=== PATIENT | female | born 1980 | race Caucasian/White ===

== ENCOUNTER 2016-04-28 11:14 | Emergency (ER) | payer OTHER, BC ==
[~2016-04-28] VITALS: Ht 175.3 cm; Wt 64.4 kg
[~2016-04-28 11:14] MED LIST: AMPH20TA2 PO; BCPILLS PO; FLUO27.5 PO; SPIR100T PO
[2016-04-28 11:22] VITALS: BP 161/98; PULSE 98; TEMP 37; O2SAT 95; Ht 175.3 cm; Wt 64.4 kg
--- NOTE | 2016-04-28 11:44 | EMERGENCY ROOM VISIT NOTE ---
ED Visit Note First contact with patient: 11:25 CHIEF COMPLAINT: Head injury HISTORY OF PRESENT ILLNESS: This 35-year-old female patient presented to the emergency department ambulatory after receiving a head injury which occurred this morning. The patient reports that she slipped on a sidewalk and fell, landing on her head. There was no loss of consciousness, but the patient does state that she felt like she was going to pass out for a few seconds. Since the injury, she has had a headache, dizziness and a feeling of fogginess. There has been no vomiting. The patient is concerned because she had a head injury 3-4 months ago and states that she sometimes has difficulty forming thoughts since then. The patient also reports that she hit her left side and has some mild pain in her left ribs. She had previously fractured these ribs. She rates her overall discomfort a 3/10. She denies any blurred vision, slurred speech, numbness, weakness or confusion. She has not taken any medication for her pain. She denies any other injuries. REVIEW OF SYSTEMS: A review of systems was performed with positives and pertinent negatives listed in the history of present illness. All other systems were reviewed and are negative. ALLERGIES: Scalp, shellfish allergy MEDICATIONS: control pills, fluoxetine, Aldactone, Adderall PMH: No significant past medical history. SOCIAL HISTORY: The patient lives locally with her family. PHYSICAL EXAM: Vital Signs: Reviewed Nurse's notes, vital signs stable. GENERAL : This is a 35-year-old female, in no acute distress, well-developed, well- nourished. NEURO: The patient is alert, oriented to person place and time, and coherent. Normal mini mental status exam. Negative Romberg and pronator drift. Cerebellar function intact. HEAD: Normocephalic, atraumatic. EYES: Pupils are equal round and reactive to light and accommodation. EOMs are full and optic discs and fundi are normal. There is no swelling or discoloration of the tissue surrounding the eyes. EARS: External auditory canals clear without blood. NOSE: Patent without tenderness. No septal hematoma. FACE: No facial bone tenderness. NECK: Supple. There is no cervical spine tenderness. The patient does not have tenderness with movement of the neck. HEART: Regular rate and rhythm, no murmurs gallops or rubs. LUNGS: Clear to auscultation throughout all lung hawley. MUSCULOSKELETAL: There is minimal tenderness to palpation of the left lateral lower ribs. ED COURSE: I examined the patient. The patient has no concerning symptoms or physical exam findings. I do not feel that CT is warranted. I did have a lengthy discussion with the patient. It seems that she has had persistent postconcussive syndrome since her last head injury. I do feel the patient would benefit from follow-up with the concussion clinic or possibly neurology. She was agreeable to this. I did give her follow-up information. Conservative care measures were discussed. She verbalized her understanding of my assessment and treatment plan. The patient was discharged home in good condition ambulatory. DIAGNOSIS: Head injury Problem List Medical Problems: (1) Head injury Status: Resolved Current/Historical Medications Scheduled Amphetamine-Dextroamphetamine 20MG (Adderall 20MG), 20 MG PO BID Control Pills ( Control Pills), 1 TAB PO QAM Fluoxetine Hcl (Fluoxetine Hcl), 60 MG PO QAM Spironolactone (Aldactone), 100 MG PO QAM Allergies Coded Allergies: Scallop (Verified Allergy, Severe, VOMITING , 04/28/16) Shellfish Allergy (Verified Allergy, Severe, VOMITING, 04/28/16) Vital Signs Date Time Temp Pulse Resp B/P Pulse Ox O2 Delivery O2 Flow Rate FiO2 04/28/16 11:22 37.0 98 18 161/98 95 Room Air Departure Information Impression Primary Impression: Closed head injury Dispostion Home / Self-Care Condition GOOD Referrals Mark Anthony Baron D.[facility] (PCP) Natividad Epstein M.D. Patient Instructions ED Head Injury Closed, [facility] Additional Instructions You have been treated in the Emergency Department for a Closed Head Injury. You should follow-up with the concussion clinic. They are located at [address] [place] [address], [address]. You may call them to schedule an appointment at . There are open Sunday to Sunday from 8:30 AM to 5:00 PM. For pain control, you can use the following [id number] medicines (if >12 yo): - Regular strength (325mg/tab) Tylenol (acetaminophen) 2 tabs every 4-6 hours as needed. Do not exceed 12 tablets in a 24 hour period. Avoid taking more than 4 grams (4000 mg) of Tylenol per day. This includes any other sources of acetaminophen you may take on a regular basis. You should avoid anti-inflammatories for the first 48 hours after head injury. You should relax in a quiet, dark place for the rest of the day. Avoid any possible triggers including: cigarette smoke, caffeine, nicotine, chocolate, wine, beer, loud noises or music, or bright lights. You may follow up with a neurologist for further evaluation of your persistent postconcussion symptoms. You have been provided with the contact information for a local neurologist. Return to the Emergency Department if your current symptoms worsen despite treatment course outlined above, or if you develop any of the following symptoms : intractable pain despite aforementioned treatment course, visual disturbances , loss of vision, unilateral weakness or facial drooping, slurring of speech, loss of coordination, or loss of consciousness.
== END 2016-04-28 11:51 | disposition home or self-care (01) ==
LOC: C.EDB 11:16 → C.EDD 11:51
DX: S09.90XA Unspecified injury of head, initial encounter (principal); W01.0XXA Fall on same level from slipping, tripping and stumbling without subsequent striking against object, initial encounter; Z79.3 Long term (current) use of hormonal contraceptives; Z79.899 Other long term (current) drug therapy

== ENCOUNTER → 2016-05-09 | Outpatient (CLI) | payer BC, OTHER | END | disposition home or self-care (01) | LOC: C.PAPS 11:43 | PROVIDERS: ATTEND Obstetrics & Gynecology | DX: Z01.419 Encounter for gynecological examination (general) (routine) without abnormal findings (principal) ==

== ENCOUNTER → 2017-07-03 | Outpatient (CLI) | payer OTHER | END | disposition home or self-care (01) | LOC: C.LABSPEC 11:03 | PROVIDERS: ATTEND Internal Medicine | DX: L29.8 Other pruritus (principal) ==

== ENCOUNTER → 2017-07-03 | Outpatient (CLI) | payer OTHER | END | disposition home or self-care (01) | LOC: C.PAPS 11:30 | PROVIDERS: ATTEND Physician Assistant | DX: Z12.4 Encounter for screening for malignant neoplasm of cervix (principal) ==